=== PATIENT | female | born 1950 | race Caucasian/White ===

== ENCOUNTER → 2018-08-14 | Outpatient (CLI) | payer MEDICARE ==
[~2018-08-14] MED LIST: ACET500C OR; Aleve OR; LIDO5DIS EX; TRAM50TA2 OR
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
== END ==
LOC: M RAD 10:36
PROVIDERS: ATTEND Orthopaedic Surgery
DX: M43.16 Spondylolisthesis, lumbar region (principal); M47.896 Other spondylosis, lumbar region; M51.27 Other intervertebral disc displacement, lumbosacral region

== ENCOUNTER → 2018-09-10 | Outpatient (CLI) | payer MEDICARE ==
--- NOTE | 2018-09-10 13:42 | REP ---
V/Q SCAN: Following the intravenous administration of 5.4 mCi of technetium-99m tagged MAA and the inhalation of 1 mCi of technetium-99m DTPA aerosol multiple images of the lungs are obtained in various projections. A couple of small subsegmental perfusion defects in the right lower lobe demonstrate larger ventilation defects. There is mild cardiomegaly. This causes a matched ventilation and perfusion defect in the region of the lingula. There are no areas of significant V/Q mismatch. IMPRESSION: Low probability of pulmonary embolism. Electronically Signed by José Luis Williamson MD 09/14/2018 01:45 P
== END ==
LOC: M RAD 12:03
PROVIDERS: ATTEND Internal Medicine Cardiovascular Disease
DX: R06.02 Shortness of breath (principal)
CPT/HCPCS: 78582; A9540; A9567

== ENCOUNTER → 2018-11-13 | Outpatient (CLI) | payer MEDICARE ==
--- NOTE | 2018-11-13 19:48 | REP ---
BILATERAL LOWER EXTREMITY DUPLEX DOPPLER VENOUS ULTRASOUND WITH EVALUATION FOR VENOUS REFLUX: Real-time compression and duplex Doppler interrogation of bilateral lower extremity deep venous systems is performed. Bilaterally, common femoral, superficial femoral, and popliteal veins are fully compressible with transducer pressure and demonstrate normal spontaneous and phasic flow without evidence of deep venous thrombosis. Evaluation for venous reflux on the right demonstrates reflux in the common femoral vein, with no reflux in the superficial femoral or popliteal veins. There is an anterior accessory greater saphenous vein present with reflux. There is reflux in the greater saphenous vein at the saphenofemoral junction with a duration of 6.5 seconds, AP diameter 4 mm, at the mid thigh 5.5 seconds, AP diameter 2 mm and at the knee duration 7.5 second, AP diameter 4 mm. There is reflux also seen in the lesser saphenous vein with a duration of 3.1 seconds, AP diameter 3 mm. This lesser saphenous vein reflux is only seen with the bed tipped. Multiple collateral venous structures communicate with the anterior accessory greater saphenous vein and drain into the greater saphenous vein. There is a greater degree of reflux with the bed tipped than in the standing position. Evaluation of reflux on the left side demonstrates reflux on the common femoral vein to a minimal extent with no reflux in the superficial femoral or popliteal veins. There is an anterior accessory greater saphenous vein present with reflux. There is no reflux in the greater saphenous vein at the saphenofemoral junction measuring 5 mm, nor at the mid thigh measuring 3 mm. There is reflux on the greater saphenous vein at the knee with a duration of 4.8 seconds, AP diameter 2 mm. There is reflux in the lesser saphenous vein with a duration of 3 seconds, AP diameter 3 mm. Electronically Signed by José Luis Williamson MD 11/16/2018 11:31 A
== END ==
LOC: M RAD 10:53
PROVIDERS: ATTEND Surgery Vascular Surgery
DX: I83.813 Varicose veins of bilateral lower extremities with pain (principal); I87.2 Venous insufficiency (chronic) (peripheral)

== ENCOUNTER 2022-07-24 10:44 | Day surgery (SDC) | payer MEDICARE ==
[~2022-07-24] VITALS: Ht 165.1 cm; Wt 97.1 kg
[~2022-07-24 10:44] MED LIST changes: +BUPR-71 PO; +CEFUROXIME 1MG/0.1ML INTRACAMERAL INJ As Ordered ONE; +EZET10TA21 PO; +FURO40TA2 PO; +IPRA0.00; +LEXA1TAB2 PO; +LIDOCAINE 1% SDV 5ML VIAL As Ordered ONE; +LISI10TA22 PO; +METO25TA4; +POTA1TAB23 PO; +ROSU40TA4; +UNRESOLVED CLARIFICATION ENTRY XX SCH
[2022-07-24] MEDS ORDERED: LIDOCAINE 3.5 % 1ML OPHTH TOPICAL GEL As Ordered ONE (11:33)
[2022-07-24] MEDS ORDERED: OFLOXACIN 0.3 % (OCUFLOX) OPTH SOL 5ML OS ONE (11:40)
[2022-07-24] MEDS ORDERED: LIDOCAINE 3.5 % 1ML OPHTH TOPICAL GEL OU ONE (11:40)
[2022-07-24] MEDS ORDERED: PHENYLEPHRINE 10% OPHTH SOL 5ML OS ONE (11:45)
[2022-07-24] MEDS ORDERED: BSS IRRIG/VANCO(10MG)/TOBRA(5MG)/EPINEPH(1:1000-0.5CC)500ML BAG-ORONLY IR ONE (12:00)
[2022-07-24] MEDS ORDERED: fentaNYL 100 MCG/2 ML INJECTION As Ordered ONE ×2 (12:27→13:12)
[2022-07-24] MEDS ORDERED: MIDAZOLAM INJ 2MG/2ML VIAL As Ordered ONE (12:27)
[2022-07-24] MEDS ORDERED: ACETYLCHOLINE OPHTH SOLN 1% 2ML (MIOCHOL-E) As Ordered ONE ×2 (12:50→13:28)
[2022-07-24] MEDS ORDERED: hydrALAZINE 20MG/ML 1ML VIAL As Ordered ONE (13:02)
[2022-07-24] MEDS ORDERED: LABETALOL 100MG/20ML VIAL As Ordered ONE (13:05)
[2022-07-24] MEDS ORDERED: propofoL 200 MG/20 ML VIAL As Ordered ONE (13:17)
[2022-07-24] MEDS ORDERED: DUOVISC (0.50ML VISCOAT/0.85ML PROVISC) OPHTH KIT As Ordered ONE (13:28)
[2022-07-24] MEDS ORDERED: TOBRADEX OPHTH OINT 3.5 GM As Ordered ONE (13:36)
[2022-07-24 13:48] VITALS: BP 148/74
== END 2022-07-24 14:19 | disposition home or self-care (01) ==
LOC: M SDC 10:44
PROVIDERS: ATTEND Ophthalmology
DX: H25.12 Age-related nuclear cataract, left eye (principal); I10 Essential (primary) hypertension; E78.5 Hyperlipidemia, unspecified; R00.1 Bradycardia, unspecified; F41.9 Anxiety disorder, unspecified; J44.9 Chronic obstructive pulmonary disease, unspecified; Z87.891 Personal history of nicotine dependence; Z79.899 Other long term (current) drug therapy
CPT/HCPCS: 66984; J0360; J0697; J1120; J2250; J3010; V2632